=== PATIENT | male | born 1990 | race African-American/Black ===

== ENCOUNTER 2018-10-11 11:48 | Emergency (ER) | payer MEDICAID ==
[~2018-10-11] VITALS: Ht 190.5 cm; Wt 100.7 kg
[2018-10-11 12:15] VITALS: BP 128/79; Ht 190.5 cm; Wt 100.7 kg
== END 2018-10-11 14:23 | disposition home or self-care (01) ==
LOC: ED 11:48
DX: M62.830 Muscle spasm of back (principal); V49.49XA Driver injured in collision with other motor vehicles in traffic accident, initial encounter; Y93.I9 Activity, other involving external motion; Y92.413 State road as the place of occurrence of the external cause; Y99.8 Other external cause status
CPT/HCPCS: J7030